=== PATIENT | male | born 1995 | race Caucasian/White ===

== ENCOUNTER 2022-02-23 10:50 | Emergency (ER) | payer MEDICAID ==
[~2022-02-23] VITALS: Ht 180.3 cm; Wt 115.7 kg
[2022-02-23 11:01] VITALS: BP 129/76
--- NOTE | 2022-02-23 11:09 | NUR ---
BIBS THIS 26YO MALE PATIENT WITH CC OF RIGHT EAR PAIN AND NASAL CONGESTION FOR 3 DAYS. TOOK SOME NASAL CONGESTION MEDICINE BUT NO RELIEF. PLACED IN CHAIR. VITALS CHECKED.
[2022-02-23] MEDS ORDERED: P-EP-94 PO (11:30)
--- NOTE | 2022-02-23 11:42 | NUR ---
Patient discharged to home in stable condition. Written and verbal after care instructions given. Patient verbalizes understanding of instruction.
== END 2022-02-23 11:43 | disposition home or self-care (01) ==
LOC: ER 10:53
DX: H69.81 Other specified disorders of Eustachian tube, right ear (principal)